=== PATIENT | female | born 1940 | race Caucasian/White ===

== ENCOUNTER → 2017-10-19 | Outpatient (CLI) | payer MEDICARE | END | disposition home or self-care (01) | LOC: CFH 13:09 | PROVIDERS: ATTEND Family Medicine | DX: Z13.820 Encounter for screening for osteoporosis (principal); M85.80 Other specified disorders of bone density and structure, unspecified site | CPT/HCPCS: 77080 ==

== ENCOUNTER → 2018-03-15 | Outpatient (CLI) | payer MEDICARE | LOC: CFH 12:56 | PROVIDERS: ATTEND Family Medicine | DX: R07.81 Pleurodynia (principal) | CPT/HCPCS: 71111 ==

== ENCOUNTER 2018-05-11 09:54 | Inpatient (IN) | payer MEDICARE ==
[~2018-05-11] VITALS: Ht 203.2 cm; Wt 61.1 kg
[2018-05-11 10:31] LABS: BASOPHILS # (AUTO) 0.03 x10^3/uL (0-0.1); BASOPHILS % (AUTO) 0 % (0-1); EOSINOPHILS # (AUTO) 0.09 x10^3/uL (0-0.4); EOSINOPHILS % (AUTO) 1 % (1-7); LYMPHOCYTES % (AUTO) 16 % (22-44); MD NO; MEAN CORPUSCULAR HEMOGLOBIN 30.5 pg (27.0-34.8); MEAN CORPUSCULAR HGB CONC 33.3 g/dL (32.4-35.8); MEAN CORPUSCULAR VOLUME 91.8 fL (80-100); MEAN PLATELET VOLUME 9.1 fL (7.4-10.4); MONOCYTES # (AUTO) 0.48 x10^3/uL (0.2-0.8); MONOCYTES % (AUTO) 6 % (2-9); NEUTROPHILS % (AUTO) 77 % (42-75); PLATELET COUNT 198 x10^3/uL (130-400); RED BLOOD COUNT 4.42 x10^6/uL (3.82-5.3); RED CELL DISTRIBUTION WIDTH 13.8 % (9.6-15.2)
[2018-05-11 10:39] LABS: CALCIUM 9.4 mg/dL (8.5-10.1); CHLORIDE 110 mmol/L (98-107)
[2018-05-11] MEDS ORDERED: LOVA20TA2 PO (10:43)
[2018-05-11 10:47] LABS: ALANINE AMINOTRANSFERASE 13 U/L (12-78); ALBUMIN 3.6 g/dL (3.4-5.0); ALKALINE PHOSPHATASE 96 U/L (45-117); ANION GAP 5 mmol/L (5-15); BILIRUBIN,TOTAL 1.1 mg/dL (0.2-1.0); CREATININE 1.33 mg/dL (0.55-1.02); TOTAL PROTEIN 7.5 g/dL (6.4-8.2)
[2018-05-11] MEDS ORDERED: MECLIZINE CHEWABLE 25 MG TAB ONE (10:50)
[2018-05-11] MEDS ORDERED: ONDANSETRON ODT 4 MG ONE (10:51)
[2018-05-11] MEDS ORDERED: MECLIZINE CHEWABLE 25 MG TAB PO ONE (11:00)
[2018-05-11] MEDS ORDERED: ONDANSETRON ODT 4 MG PO ONE (11:00)
[2018-05-11] MEDS ORDERED: SODIUM CHLORIDE FLUSH 10ML SYR IVF ONE (15:00)
[2018-05-11] MEDS ORDERED: ONDANSETRON 2MG/ML, 2ML IVPush PRN (15:30)
[2018-05-11] MEDS ORDERED: ONDANSETRON 4 MG TABLET PO PRN (15:30)
[2018-05-11] MEDS ORDERED: ASPIRIN 325 MG TABLET PO ONE (16:10)
[2018-05-11 17:05] VITALS: BP 163/93
[2018-05-11 18:27] VITALS: BP 152/77
[2018-05-11 20:45] VITALS: BP 151/72
[2018-05-11] MEDS ORDERED: LOVASTATIN 20 MG TABLET PO SCH (21:00)
[2018-05-11 22:30] VITALS: BP 156/80
[2018-05-12 00:30] VITALS: BP 157/85
[2018-05-12 02:15] VITALS: BP 139/83
[2018-05-12 03:23] VITALS: BP 165/75
[2018-05-12] MEDS: ACETAMINOPHEN 650 MG/20.3 ML UDC PO PRN ×2 (03:50→20:00)
[2018-05-12 05:54] LABS: CHOL/HDL RATIO 3.3; LDL/HDL RATIO 1.7 (0.5-3.0)
[2018-05-12 08:20] VITALS: BP 105/67
[2018-05-12] MEDS ORDERED: ASPIRIN 81 MG TABLET CHEW PO/NG SCH (09:00)
[2018-05-12 14:48] VITALS: BP 116/69
[2018-05-12 17:00] LABS: HEMOGLOBIN A1C 5.3 % (4.2-6.3)
[2018-05-12 19:57] VITALS: BP 151/81
[2018-05-12] MEDS: ATORVASTATIN 80 MG TABLET PO SCH (20:00)
[2018-05-13 01:11] VITALS: BP 136/77
[2018-05-13 05:28] LABS: ALBUMIN 3.1 g/dL (3.4-5.0); ANION GAP 5 mmol/L (5-15); CALCIUM 9.3 mg/dL (8.5-10.1); CHLORIDE 109 mmol/L (98-107)
[2018-05-13 05:30] LABS: BASOPHILS # (AUTO) 0.02 x10^3/uL (0-0.1); BASOPHILS % (AUTO) 0 % (0-1); EOSINOPHILS # (AUTO) 0.09 x10^3/uL (0-0.4); EOSINOPHILS % (AUTO) 1 % (1-7); LYMPHOCYTES # (AUTO) 1.76 x10^3/uL (1-3.4); LYMPHOCYTES % (AUTO) 26 % (22-44); MD NO; MEAN CORPUSCULAR HEMOGLOBIN 30.6 pg (27.0-34.8); MEAN CORPUSCULAR HGB CONC 33.2 g/dL (32.4-35.8); MEAN CORPUSCULAR VOLUME 92.2 fL (80-100); MEAN PLATELET VOLUME 9.3 fL (7.4-10.4); MONOCYTES # (AUTO) 0.61 x10^3/uL (0.2-0.8); MONOCYTES % (AUTO) 9 % (2-9); NEUTROPHILS # (AUTO) 4.34 x10^3/uL (1.8-6.8); NEUTROPHILS % (AUTO) 64 % (42-75); PLATELET COUNT 173 x10^3/uL (130-400); RED BLOOD COUNT 4.24 x10^6/uL (3.82-5.3); RED CELL DISTRIBUTION WIDTH 14.1 % (9.6-15.2)
[2018-05-13 05:34] LABS: ALANINE AMINOTRANSFERASE 11 U/L (12-78); ALKALINE PHOSPHATASE 80 U/L (45-117); BILIRUBIN,TOTAL 0.7 mg/dL (0.2-1.0); CREATININE 1.34 mg/dL (0.55-1.02); TOTAL PROTEIN 6.5 g/dL (6.4-8.2)
[2018-05-13 08:20] VITALS: BP 148/82
[2018-05-13] MEDS: ASPIRIN 325 MG TABLET EC PO SCH (08:28)
[2018-05-13 13:30] VITALS: BP 159/75
[2018-05-13] MEDS ORDERED: OMNIPAQUE 350 MG/ML, 100ML BOTTLE ONE (14:00)
[2018-05-13] MEDS: ACETAMINOPHEN 650 MG/20.3 ML UDC PO PRN (18:41)
[2018-05-13 20:04] VITALS: BP 149/82
[2018-05-13] MEDS: ATORVASTATIN 80 MG TABLET PO SCH (22:05)
[2018-05-14 02:20] VITALS: BP 144/76
[2018-05-14 05:11] LABS: BASOPHILS # (AUTO) 0.04 x10^3/uL (0-0.1); BASOPHILS % (AUTO) 1 % (0-1); EOSINOPHILS % (AUTO) 1 % (1-7); LYMPHOCYTES # (AUTO) 1.57 x10^3/uL (1-3.4); LYMPHOCYTES % (AUTO) 22 % (22-44); MD NO; MEAN CORPUSCULAR HEMOGLOBIN 29.7 pg (27.0-34.8); MEAN CORPUSCULAR HGB CONC 32.6 g/dL (32.4-35.8); MEAN CORPUSCULAR VOLUME 91.2 fL (80-100); MEAN PLATELET VOLUME 9.1 fL (7.4-10.4); MONOCYTES # (AUTO) 0.65 x10^3/uL (0.2-0.8); MONOCYTES % (AUTO) 9 % (2-9); NEUTROPHILS # (AUTO) 4.91 x10^3/uL (1.8-6.8); NEUTROPHILS % (AUTO) 68 % (42-75); PLATELET COUNT 179 x10^3/uL (130-400); RED BLOOD COUNT 4.34 x10^6/uL (3.82-5.3)
[2018-05-14 05:14] LABS: ALBUMIN 3.2 g/dL (3.4-5.0); ANION GAP 5 mmol/L (5-15); CALCIUM 9.6 mg/dL (8.5-10.1); CHLORIDE 109 mmol/L (98-107); CREATININE 1.32 mg/dL (0.55-1.02)
[2018-05-14 07:25] VITALS: BP 122/79
[2018-05-14] MEDS: ASPIRIN 325 MG TABLET EC PO SCH (09:17)
[2018-05-14 13:42] VITALS: BP 135/73
[2018-05-14 19:13] VITALS: BP 133/82
[2018-05-14] MEDS: ATORVASTATIN 80 MG TABLET PO SCH (20:38)
[2018-05-14] MEDS: ACETAMINOPHEN 650 MG/20.3 ML UDC PO PRN (23:13)
[2018-05-15 02:16] VITALS: BP 133/76
[2018-05-15 04:58] LABS: BASOPHILS # (AUTO) 0.05 x10^3/uL (0-0.1); BASOPHILS % (AUTO) 1 % (0-1); EOSINOPHILS # (AUTO) 0.12 x10^3/uL (0-0.4); EOSINOPHILS % (AUTO) 2 % (1-7); LYMPHOCYTES # (AUTO) 2.17 x10^3/uL (1-3.4); LYMPHOCYTES % (AUTO) 30 % (22-44); MD NO; MEAN CORPUSCULAR HEMOGLOBIN 30.7 pg (27.0-34.8); MEAN CORPUSCULAR HGB CONC 33.3 g/dL (32.4-35.8); MEAN CORPUSCULAR VOLUME 92.3 fL (80-100); MEAN PLATELET VOLUME 9.5 fL (7.4-10.4); MONOCYTES # (AUTO) 0.71 x10^3/uL (0.2-0.8); MONOCYTES % (AUTO) 10 % (2-9); NEUTROPHILS # (AUTO) 4.23 x10^3/uL (1.8-6.8); NEUTROPHILS % (AUTO) 58 % (42-75); PLATELET COUNT 164 x10^3/uL (130-400); RED BLOOD COUNT 4.28 x10^6/uL (3.82-5.3); RED CELL DISTRIBUTION WIDTH 14.3 % (9.6-15.2)
[2018-05-15 05:06] LABS: ANION GAP 6 mmol/L (5-15); CALCIUM 9.5 mg/dL (8.5-10.1); CHLORIDE 108 mmol/L (98-107); CREATININE 1.38 mg/dL (0.55-1.02)
[2018-05-15 07:10] VITALS: BP 115/72
[2018-05-15] MEDS: ASPIRIN 325 MG TABLET EC PO SCH (09:21)
[2018-05-15 13:08] VITALS: BP 138/79
[2018-05-15] MEDS ORDERED: ATOR-2 PO (14:26)
[2018-05-15] MEDS ORDERED: ASPI-650 PO (14:26)
[2018-05-15] MEDS ORDERED: CARV6.2512 PO (14:27)
== END 2018-05-15 17:21 | disposition home or self-care (01) | DRG 61 ==
LOC: ED 14:31 → EDIP 14:32 → ED 14:33 → 4WST 17:08
PROVIDERS: ADMIT Internal Medicine; ATTEND Internal Medicine
DX: I63.413 Cerebral infarction due to embolism of bilateral middle cerebral arteries (principal); I63.113 Cerebral infarction due to embolism of bilateral vertebral arteries; E44.1 Mild protein-calorie malnutrition; Z68.1 Body mass index [BMI] 19.9 or less, adult; N19 Unspecified kidney failure; R29.701 NIHSS score 1; E78.5 Hyperlipidemia, unspecified; H40.9 Unspecified glaucoma; I71.4 Abdominal aortic aneurysm, without rupture; Z79.82 Long term (current) use of aspirin; Z82.49 Family history of ischemic heart disease and other diseases of the circulatory system; Z87.891 Personal history of nicotine dependence; Z83.3 Family history of diabetes mellitus; Z90.710 Acquired absence of both cervix and uterus; Z90.49 Acquired absence of other specified parts of digestive tract
CPT/HCPCS: 36415; 70450; 70496; 70498; 70551; 71275; 74175; 80048; 80053; 80061; 82040; 83036; 83735; 84100; 85025; 93005; 93306; Q0162; Q9967; 92523-GN

== ENCOUNTER → 2018-06-17 | Outpatient (CLI) | payer MEDICARE ==
[~2018-06-17] MED LIST: ASPI-650 PO; ASPI325T17 PO; ATOR-2 PO; ATOR80TA PO; CARV6.2512 PO; CARV6.252 PO; LOVA20TA2 PO; TIMO5DRO5 EACHEYE; TRAV5DRO EACHEYE
== END | disposition home or self-care (01) ==
LOC: STAR 09:53
PROVIDERS: ATTEND Surgery
DX: Z01.818 Encounter for other preprocedural examination (principal); I44.0 Atrioventricular block, first degree; Z88.6 Allergy status to analgesic agent
CPT/HCPCS: 93005

== ENCOUNTER 2018-06-27 05:51 | Inpatient (IN) | payer MEDICARE ==
[~2018-06-27] VITALS: Ht 172.7 cm; Wt 72.0 kg
[2018-06-27] MEDS ORDERED: LACTATED RINGERS 1,000 ML IV SCH (06:04)
[2018-06-27] MEDS ORDERED: BUPIVACAINE/PF 0.5% ONE (06:28)
[2018-06-27] MEDS ORDERED: PROTAMINE SULFATE 10 MG/ML, 5ML ONE (06:28)
[2018-06-27] MEDS ORDERED: LIDOCAINE/PF 1%, 30ML ONE (06:28)
[2018-06-27] MEDS ORDERED: PAPAVERINE 30 MG/ML, 2ML ONE (06:28)
[2018-06-27] MEDS ORDERED: EPINEPHRINE 1 MG/ML, 1ML ONE (06:29)
[2018-06-27] MEDS ORDERED: HEPARIN 1,000 UNITS/ML, 10ML ONE (06:29)
[2018-06-27] MEDS ORDERED: THROMBIN 20,000 UNIT VIAL TP ONE (06:29)
[2018-06-27] MEDS ORDERED: LIDOCAINE GEL 2%, 5ML ONE (06:59)
[2018-06-27] MEDS ORDERED: FENTANYL PF 250 MCG/5ML ONE (07:00)
[2018-06-27] MEDS ORDERED: GABAPENTIN 300 MG CAPSULE PO ONE (07:00)
[2018-06-27] MEDS ORDERED: ONDANSETRON ODT 8 MG PO ONE (07:00)
[2018-06-27] MEDS ORDERED: ACETAMINOPHEN 500 MG TABLET PO ONE (07:00)
[2018-06-27] MEDS ORDERED: PHENYLEPHRINE 10 MG/ML ONE (07:21)
[2018-06-27] MEDS ORDERED: ROCURONIUM 10MG/ML,5ML ONE (08:26)
[2018-06-27] MEDS ORDERED: CEFAZOLIN 1,000 MG ONE (08:26)
[2018-06-27] MEDS ORDERED: NEOSTIGMINE 1 MG/ML, 10ML ONE (08:26)
[2018-06-27] MEDS ORDERED: PROPOFOL 10 MG/ML, 20ML ONE (08:26)
[2018-06-27] MEDS ORDERED: DEXAMETHASONE 4 MG/ML, 1ML ONE (08:26)
[2018-06-27] MEDS ORDERED: GLYCOPYRROLATE 0.2MG/1ML, 5ML ONE (08:26)
[2018-06-27] MEDS ORDERED: HYDROmorphone 1 MG/ML, 1ML IV PRN (08:30)
[2018-06-27] MEDS ORDERED: FENTANYL PF 100 MCG/2ML IV PRN (08:30)
[2018-06-27] MEDS ORDERED: ALBUTEROL/IPRATROPIUM 2.5MG/0.5MG, 3 ML NPPB PRN (08:30)
[2018-06-27] MEDS ORDERED: LABETALOL 5MG/ML, 20ML IV PRN (08:30)
[2018-06-27] MEDS ORDERED: MIDAZOLAM 1 MG/ML, 2ML IV PRN (08:30)
[2018-06-27] MEDS ORDERED: DIPHENHYDRAMINE 50 MG/ML, 1ML IVPush PRN (08:30)
[2018-06-27] MEDS ORDERED: OXYcodone 5 MG/5 ML ORAL.SOL UDC PO PRN (08:30)
[2018-06-27] MEDS ORDERED: ONDANSETRON 2MG/ML, 2ML IV PRN ×2 (08:30→12:30)
[2018-06-27] MEDS ORDERED: SCOPOLAMINE PATCH, 1.5MG PATCH.TD72 TD PRN (08:30)
[2018-06-27] MEDS ORDERED: hydrALAzine 20 MG/ML, 1ML IV PRN ×2 (08:30→12:30)
[2018-06-27] MEDS ORDERED: VISIPAQUE 270 MG/ML, 150ML BOTTLE ONE (09:11)
[2018-06-27] MEDS ORDERED: VISIPAQUE 270 MG/ML, 50ML BOTTLE ONE (09:11)
[2018-06-27 11:25] VITALS: BP 106/67
[2018-06-27 12:18] VITALS: BP 98/61
[2018-06-27 12:21] LABS: BASOPHILS # (AUTO) 0.03 x10^3/uL (0-0.1); BASOPHILS % (AUTO) 0 % (0-1); EOSINOPHILS # (AUTO) 0.01 x10^3/uL (0-0.4); EOSINOPHILS % (AUTO) 0 % (1-7); LYMPHOCYTES # (AUTO) 0.68 x10^3/uL (1-3.4); LYMPHOCYTES % (AUTO) 7 % (22-44); MD NO; MEAN CORPUSCULAR HEMOGLOBIN 30.9 pg (27.0-34.8); MEAN CORPUSCULAR HGB CONC 33.4 g/dL (32.4-35.8); MEAN CORPUSCULAR VOLUME 92.6 fL (80-100); MEAN PLATELET VOLUME 8.8 fL (7.4-10.4); MONOCYTES # (AUTO) 0.13 x10^3/uL (0.2-0.8); MONOCYTES % (AUTO) 1 % (2-9); NEUTROPHILS # (AUTO) 8.54 x10^3/uL (1.8-6.8); NEUTROPHILS % (AUTO) 91 % (42-75); PLATELET COUNT 165 x10^3/uL (130-400); RED BLOOD COUNT 3.51 x10^6/uL (3.82-5.3); RED CELL DISTRIBUTION WIDTH 14.9 % (9.6-15.2)
[2018-06-27] MEDS ORDERED: HYDROcodone/APAP 5/325 TABLET PO PRN (12:30)
[2018-06-27] MEDS ORDERED: ENOXAPARIN 40 MG/0.4 ML SQ SCH (12:30)
[2018-06-27] MEDS ORDERED: DIPHENHYDRAMINE 50 MG/ML, 1ML IV PRN (12:30)
[2018-06-27] MEDS ORDERED: DIPHENHYDRAMINE 25 MG CAPSULE PO PRN (12:30)
[2018-06-27] MEDS ORDERED: ONDANSETRON ODT 4 MG PO PRN (12:30)
[2018-06-27] MEDS ORDERED: ACETAMINOPHEN 650 MG SUPP PR PRN (12:30)
[2018-06-27] MEDS ORDERED: ACETAMINOPHEN 325 MG TABLET PO PRN (12:30)
[2018-06-27] MEDS ORDERED: morphine SULFATE 10 MG/ML, 1ML IV PRN (12:30)
[2018-06-27] MEDS ORDERED: KETOROLAC 30 MG/1 ML IV PRN (12:30)
[2018-06-27 12:36] LABS: ALBUMIN 2.5 g/dL (3.4-5.0); ANION GAP 6 mmol/L (5-15); CALCIUM 8.1 mg/dL (8.5-10.1); CHLORIDE 113 mmol/L (98-107)
[2018-06-27 12:49] LABS: ALANINE AMINOTRANSFERASE 11 U/L (12-78); ALKALINE PHOSPHATASE 99 U/L (45-117); BILIRUBIN,TOTAL 0.6 mg/dL (0.2-1.0); CREATININE 1.22 mg/dL (0.55-1.02); TOTAL PROTEIN 5.9 g/dL (6.4-8.2)
[2018-06-27] MEDS: POTASSIUM CHLORIDE 20 MEQ in D5%-0.45% NACL 1,000 ML IV SCH (12:54)
[2018-06-27] MEDS ORDERED: MAGNESIUM SULFATE PMX 2GM/50ML 50 ML IV ONE (13:00)
[2018-06-27 18:47] VITALS: BP 102/67
[2018-06-27] MEDS ORDERED: SODIUM CHLORIDE FLUSH 10ML SYR IVF SCH (21:00)
[2018-06-28 00:41] VITALS: BP 91/57
[2018-06-28] MEDS: POTASSIUM CHLORIDE 20 MEQ in D5%-0.45% NACL 1,000 ML IV SCH (02:05)
[2018-06-28 07:29] VITALS: BP 109/65
[2018-06-28 09:08] LABS: CALCIUM 8.5 mg/dL (8.5-10.1); CHLORIDE 112 mmol/L (98-107); CREATININE 1.11 mg/dL (0.55-1.02)
[2018-06-28 09:16] LABS: ANION GAP 5 mmol/L (5-15)
[2018-06-28] MEDS ORDERED: METHIMAZOLE 5 MG TAB PO SCH (11:00)
[2018-06-28] MEDS ORDERED: METH5TAB6 PO (11:05)
[2018-07-05] MEDS ORDERED: FERR325T16 PO (13:07)
[2018-07-05] MEDS ORDERED: ASPI-621 PO (13:07)
[2018-07-05] MEDS ORDERED: APIX5TAB PO (13:07)
[2018-07-05] MEDS ORDERED: SOTA80TA18 PO (13:07)
== END 2018-06-28 12:51 | disposition home or self-care (01) | DRG 269 ==
LOC: ORIP 05:51 → 5SO 10:34 → DCLOUNGE 06-28 12:30
PROVIDERS: ADMIT Surgery; ATTEND Surgery
PROC: B41D1ZZ Fluoroscopy of Aorta and Bilateral Lower Extremity Arteries using Low Osmolar Contrast (ICD-10-PCS; 2018-06-27)
PROC: 04V03D6 (ICD-10-PCS; principal; 2018-06-27 07:00)
DX: I71.4 Abdominal aortic aneurysm, without rupture (principal); E44.0 Moderate protein-calorie malnutrition; I50.30 Unspecified diastolic (congestive) heart failure; I11.0 Hypertensive heart disease with heart failure; E78.5 Hyperlipidemia, unspecified; E05.90 Thyrotoxicosis, unspecified without thyrotoxic crisis or storm; Z68.24 Body mass index [BMI] 24.0-24.9, adult; E83.42 Hypomagnesemia; I25.10 Atherosclerotic heart disease of native coronary artery without angina pectoris; I65.09 Occlusion and stenosis of unspecified vertebral artery; I48.0 Paroxysmal atrial fibrillation; Z86.73 Personal history of transient ischemic attack (TIA), and cerebral infarction without residual deficits; Z87.891 Personal history of nicotine dependence; Z90.710 Acquired absence of both cervix and uterus
CPT/HCPCS: 34705; 34812; 36415; 80048; 80053; 83735; 84439; 84443; 85025; 86850; 86900; 86923; 93005; C1725; G0378; J0171; J0690; J1100; J1644; J1650; J2704; J2710; J2720; J3010; J3480; J3490; Q0162; Q9966; C1751; C1768; C1769; C1894; J2370; J2440; J3475; J7120

== ENCOUNTER 2018-08-13 18:50 | Emergency (ER) | payer MEDICARE ==
[~2018-08-13] VITALS: Ht 172.7 cm; Wt 57.0 kg
[~2018-08-13 18:50] MED LIST changes: +APIX5TAB PO; +ASPI-621 PO; +FERR325T16 PO; +METH5TAB6 PO; +SOTA80TA18 PO
[2018-08-13] MEDS ORDERED: LIDOCAINE-MPF 2%, 2ML INFIL ONE (19:30)
[2018-08-13] MEDS ORDERED: LIDOCAINE-MPF 1%, 2ML ONE ×2 (19:30→19:32)
[2018-08-13 19:51] LABS: BASOPHILS # (AUTO) 0.05 x10^3/uL (0-0.1); BASOPHILS % (AUTO) 1 % (0-1); EOSINOPHILS # (AUTO) 0.68 x10^3/uL (0-0.4); EOSINOPHILS % (AUTO) 8 % (1-7); LYMPHOCYTES # (AUTO) 1.66 x10^3/uL (1-3.4); LYMPHOCYTES % (AUTO) 20 % (22-44); MD NO; MEAN CORPUSCULAR HEMOGLOBIN 30.2 pg (27.0-34.8); MEAN CORPUSCULAR HGB CONC 32.4 g/dL (32.4-35.8); MEAN CORPUSCULAR VOLUME 93.1 fL (80-100); MEAN PLATELET VOLUME 9.4 fL (7.4-10.4); MONOCYTES # (AUTO) 0.63 x10^3/uL (0.2-0.8); MONOCYTES % (AUTO) 8 % (2-9); NEUTROPHILS # (AUTO) 5.36 x10^3/uL (1.8-6.8); NEUTROPHILS % (AUTO) 64 % (42-75); PLATELET COUNT 214 x10^3/uL (130-400); RED BLOOD COUNT 3.43 x10^6/uL (3.82-5.3); RED CELL DISTRIBUTION WIDTH 19.3 % (9.6-15.2)
[2018-08-13 19:59] LABS: ALBUMIN 2.9 g/dL (3.4-5.0); ANION GAP 9 mmol/L (5-15); CALCIUM 9.4 mg/dL (8.5-10.1); CHLORIDE 111 mmol/L (98-107)
[2018-08-13 20:05] LABS: HCT (SEDRATE) 31.9 % (34.6-47.8); HIGH-SENSITIVITY CRP 0.89 mg/dL (0.02-0.30)
[2018-08-13 22:43] VITALS: BP 113/60
== END 2018-08-13 23:09 | disposition home or self-care (01) ==
LOC: ED 19:36
DX: M25.462 Effusion, left knee (principal); M25.062 Hemarthrosis, left knee; Z90.49 Acquired absence of other specified parts of digestive tract; I10 Essential (primary) hypertension; E07.9 Disorder of thyroid, unspecified; Z86.73 Personal history of transient ischemic attack (TIA), and cerebral infarction without residual deficits
CPT/HCPCS: 20610; 36415; 80048; 82040; 82945; 83615; 84157; 84550; 84560; 85025; 85651; 85810; 86141; 87070; 87205; 89050; 89060

== ENCOUNTER 2018-08-21 00:44 | Emergency (ER) | payer MEDICARE ==
[~2018-08-21] VITALS: Ht 172.7 cm; Wt 57.8 kg
[2018-08-21] MEDS ORDERED: LIDOCAINE-MPF 1%, 5ML ONE (01:08)
[2018-08-21] MEDS ORDERED: LIDOCAINE-MPF 1%, 5ML INFIL ONE (01:30)
[2018-08-21 02:24] VITALS: BP 108/49
== END 2018-08-21 02:26 | disposition home or self-care (01) ==
LOC: ED 01:33
DX: M25.062 Hemarthrosis, left knee (principal); I10 Essential (primary) hypertension; Z87.891 Personal history of nicotine dependence; Z90.89 Acquired absence of other organs; Z86.73 Personal history of transient ischemic attack (TIA), and cerebral infarction without residual deficits; Z86.39 Personal history of other endocrine, nutritional and metabolic disease
CPT/HCPCS: 20610; 82945; 84157; 87070; 87205; 89051; 99284

== ENCOUNTER → 2018-09-07 | Outpatient (CLI) | payer MEDICARE ==
[~2018-09-07] MED LIST changes: +OMNIPAQUE 350 MG/ML, 100ML BOTTLE ONE
== END | disposition home or self-care (01) ==
LOC: CFH 12:51
PROVIDERS: ATTEND Surgery
DX: N13.30 Unspecified hydronephrosis (principal); I71.4 Abdominal aortic aneurysm, without rupture
CPT/HCPCS: 74175; Q9967

== ENCOUNTER 2018-12-23 12:21 | Outpatient (CLI) | payer MEDICARE ==
[~2018-12-23 12:21] MED LIST changes: -ASPI-621 PO; +ASPI81TA45 PO; -OMNIPAQUE 350 MG/ML, 100ML BOTTLE ONE
== END 2018-12-23 23:59 | disposition home or self-care (01) ==
LOC: CFH 12:21
PROVIDERS: ATTEND Family Medicine
DX: Z12.31 Encounter for screening mammogram for malignant neoplasm of breast (principal)
CPT/HCPCS: 77067

== ENCOUNTER 2019-10-27 09:22 | Emergency (ER) | payer MEDICARE ==
[~2019-10-27] VITALS: Ht 172.7 cm; Wt 60.0 kg
[2019-10-27] MEDS ORDERED: SODIUM CHLORIDE FLUSH 10ML SYR IVF ONE ×2 (10:00→11:00)
[2019-10-27 10:23] LABS: BASOPHILS # (AUTO) 0.03 x10^3/uL (0-0.1); BASOPHILS % (AUTO) 0 % (0-1); EOSINOPHILS # (AUTO) 0.14 x10^3/uL (0-0.4); EOSINOPHILS % (AUTO) 1 % (1-7); LYMPHOCYTES # (AUTO) 1.08 x10^3/uL (1-3.4); LYMPHOCYTES % (AUTO) 10 % (22-44); MD NO; MEAN CORPUSCULAR HEMOGLOBIN 31.7 pg (27.0-34.8); MEAN CORPUSCULAR HGB CONC 32.7 g/dL (32.4-35.8); MEAN CORPUSCULAR VOLUME 96.9 fL (80-100); MEAN PLATELET VOLUME 9.6 fL (7.4-10.4); MONOCYTES # (AUTO) 0.21 x10^3/uL (0.2-0.8); MONOCYTES % (AUTO) 2 % (2-9); NEUTROPHILS # (AUTO) 8.95 x10^3/uL (1.8-6.8); NEUTROPHILS % (AUTO) 86 % (42-75); PLATELET COUNT 176 x10^3/uL (130-400); RED BLOOD COUNT 4.27 x10^6/uL (3.82-5.3); RED CELL DISTRIBUTION WIDTH 15.1 % (9.6-15.2)
[2019-10-27 10:36] LABS: ALBUMIN 3.8 g/dL (3.4-5.0); ANION GAP 6 mmol/L (5-15); CHLORIDE 111 mmol/L (98-107)
[2019-10-27 10:40] LABS: ALANINE AMINOTRANSFERASE 31 U/L (12-78); ALKALINE PHOSPHATASE 127 U/L (45-117); BILIRUBIN,TOTAL 1.3 mg/dL (0.2-1.0); CREATININE 1.53 mg/dL (0.55-1.02)
[2019-10-27] MEDS ORDERED: MORPHINE SULFATE 4 MG/ML, 1ML IVPush ONE ×2 (11:00→12:00)
[2019-10-27] MEDS ORDERED: ONDANSETRON 2MG/ML, 2ML IVPush ONE (11:00)
[2019-10-27] MEDS ORDERED: ONDANSETRON 2MG/ML, 2ML ONE (11:01)
[2019-10-27] MEDS ORDERED: MORPHINE SULFATE 4 MG/ML, 1ML ONE ×2 (11:02→12:23)
[2019-10-27] MEDS ORDERED: SODIUM CHLORIDE 0.9% 1,000ML IVBOLUS ONE (11:30)
[2019-10-27 11:40] LABS: MICROSCOPIC AUTO
[2019-10-27 11:48] LABS: CULTURE INDICATED? NO
[2019-10-27 12:29] VITALS: BP 147/65
--- NOTE | 2019-10-27 12:29 | NUR ---
TASK RN: PT RESTING ON GURNEY. NADN. PLAZAS. MEDICATED PER DEC.
[2019-10-27] MEDS ORDERED: OMNIPAQUE 350 MG/ML, 100ML BOTTLE ONE (12:52)
== END 2019-10-27 14:08 | disposition home or self-care (01) ==
LOC: ED 12:09
DX: N20.1 Calculus of ureter (principal); E78.5 Hyperlipidemia, unspecified; I10 Essential (primary) hypertension; Z86.73 Personal history of transient ischemic attack (TIA), and cerebral infarction without residual deficits; Z90.89 Acquired absence of other organs
CPT/HCPCS: 36415; 74177; 80053; 81001; 83690; 85025; 96374; 96375; 96376; 99284; J2270; J2405; J7030; Q9967

== ENCOUNTER → 2019-12-07 | Outpatient (CLI) | payer MEDICARE | END | disposition home or self-care (01) | LOC: CFH 09:57 | PROVIDERS: ATTEND Family Medicine | DX: M85.88 Other specified disorders of bone density and structure, other site (principal); Z13.820 Encounter for screening for osteoporosis; Z78.0 Asymptomatic menopausal state; Z87.891 Personal history of nicotine dependence | CPT/HCPCS: 77080 ==

== ENCOUNTER → 2019-12-27 | Outpatient (CLI) | payer MEDICARE | END | disposition home or self-care (01) | LOC: CFH 10:30 | PROVIDERS: ATTEND Family Medicine | DX: Z12.2 Encounter for screening for malignant neoplasm of respiratory organs (principal); J43.2 Centrilobular emphysema; R91.1 Solitary pulmonary nodule; E04.1 Nontoxic single thyroid nodule; I70.8 Atherosclerosis of other arteries; I71.9 Aortic aneurysm of unspecified site, without rupture; N94.89 Other specified conditions associated with female genital organs and menstrual cycle; N20.0 Calculus of kidney; Z87.891 Personal history of nicotine dependence | CPT/HCPCS: G0297 ==

== ENCOUNTER → 2020-03-18 | Outpatient (CLI) | payer MEDICARE | END | disposition home or self-care (01) | LOC: RAD 14:00 | PROVIDERS: ATTEND Family Medicine | DX: E04.1 Nontoxic single thyroid nodule (principal) | CPT/HCPCS: 10005; 88173 ==

== ENCOUNTER → 2020-04-19 | Outpatient (CLI) | payer MEDICARE | END | disposition home or self-care (01) | LOC: CFH 14:12 | PROVIDERS: ATTEND Family Medicine | DX: R91.1 Solitary pulmonary nodule (principal) | CPT/HCPCS: 71250 ==

== ENCOUNTER 2020-09-06 10:21 | Emergency (ER) | payer MEDICARE ==
[~2020-09-06] VITALS: Ht 175.3 cm; Wt 59.7 kg
[2020-09-06 10:58] LABS: BASOPHILS % (AUTO) 1 % (0-1); EOSINOPHILS % (AUTO) 0 % (1-7); LYMPHOCYTES % (AUTO) 18 % (22-44); MEAN CORPUSCULAR HEMOGLOBIN 30.2 pg (27.0-34.8); MEAN CORPUSCULAR HGB CONC 31.9 g/dL (32.4-35.8); MEAN PLATELET VOLUME 9.6 fL (7.4-10.4); MONOCYTES % (AUTO) 6 % (2-9); NEUTROPHILS % (AUTO) 76 % (42-75); PLATELET COUNT 185 x10^3/uL (130-400); RED BLOOD COUNT 4.45 x10^6/uL (3.82-5.3); RED CELL DISTRIBUTION WIDTH 14.7 % (9.6-15.2)
[2020-09-06 11:03] LABS: MD NO
[2020-09-06 11:10] LABS: ALBUMIN 3.6 g/dL (3.4-5.0); ANION GAP 5 mmol/L (5-15); CALCIUM 10.1 mg/dL (8.5-10.1); CHLORIDE 112 mmol/L (98-107); CREATININE 1.45 mg/dL (0.55-1.02)
--- NOTE | 2020-09-06 12:24 | NUR ---
CLINIC COORDINATOR: PT TO ROOM FROM [facility]
[2020-09-06] MEDS ORDERED: ACETAMINOPHEN 325 MG TABLET PO ONE (13:00)
[2020-09-06] MEDS ORDERED: ACETAMINOPHEN 325 MG TABLET ONE (13:21)
[2020-09-06 13:38] VITALS: BP 124/99
== END 2020-09-06 13:42 | disposition home or self-care (01) ==
LOC: ED 12:50
DX: N13.2 Hydronephrosis with renal and ureteral calculous obstruction (principal); R10.9 Unspecified abdominal pain; I10 Essential (primary) hypertension; Z95.0 Presence of cardiac pacemaker; Z86.39 Personal history of other endocrine, nutritional and metabolic disease; Z90.89 Acquired absence of other organs; Z86.73 Personal history of transient ischemic attack (TIA), and cerebral infarction without residual deficits; Z87.891 Personal history of nicotine dependence
CPT/HCPCS: 36415; 74176; 80048; 82040; 85025; 99284